=== PATIENT | female | born 1995 | race African-American/Black ===

== ENCOUNTER 2025-05-31 22:50 | Emergency (ER) | payer SELFPAY ==
[~2025-05-31] VITALS: Ht 160 cm; Wt 72.6 kg
[2025-06-01] MEDS ORDERED: IBUPROFEN 400 MG TABLET ONE (00:44)
[2025-06-01] MEDS: IBUPROFEN 400 MG TABLET PO ONE (00:50)
[2025-06-01 01:58] VITALS: BP 128/82; TEMP 98.5; O2SAT 98
== END 2025-06-01 01:59 | disposition home or self-care (01) ==
LOC: ER 22:59
DX: S23.3XXA Sprain of ligaments of thoracic spine, initial encounter (principal); S33.8XXA Sprain of other parts of lumbar spine and pelvis, initial encounter; S13.4XXA Sprain of ligaments of cervical spine, initial encounter; S40.012A Contusion of left shoulder, initial encounter; S80.02XA Contusion of left knee, initial encounter; V43.52XA Car driver injured in collision with other type car in traffic accident, initial encounter; Y93.89 Activity, other specified; Y92.410 Unspecified street and highway as the place of occurrence of the external cause; Y99.8 Other external cause status
CPT/HCPCS: 72125-TC; 72128-TC; 72131-TC; 73030-TC; 73564-TC